=== PATIENT | female | born 1985 | race Caucasian/White ===

== ENCOUNTER 2017-08-01 22:01 | Inpatient (IN) | payer SELFPAY ==
[2017-08-01] MEDS ORDERED: Acetaminophen 500 MG TAB ONE (22:53)
[2017-08-01] MEDS ORDERED: HYDROmorphone 0.5 MG/0.5 ML SYRINGE ONE (22:58)
[2017-08-01 23:35] LABS: Anion Gap 10 mmol/L (10-20); BUN (Urea Nitrogen) 17 mg/dL (7.0-18.7); Calc. Creatinine Clearance 0 mL/min (70-130); Calcium 8.8 mg/dL (7.8-10.44); Carbon Dioxide 24 mmol/L (22-29); Chloride 102 mmol/L (98-107); Estimated GFR-MDRD Greater than 90
[2017-08-01 23:37] LABS: Band 8 % (5-11); Hematocrit 31.3 % (36.0-47.0); Mean Platelet Volume 6.6 fL (7.4-10.4); Neutrophil 87 % (42-75); Red Blood Cell (RBC) Count 3.36 mill/uL (4.20-5.40)
[2017-08-02] MEDS ORDERED: Iothalamate Meglumine 60% 50 ML VIAL FS ONE
[2017-08-02] MEDS ORDERED: Morphine 4 MG/ML VIAL ONE ×2 (00:09→01:55)
[2017-08-02] MEDS ORDERED: Fentanyl 100 MCG/2 ML VIAL ONE (00:47)
[2017-08-02] MEDS ORDERED: Midazolam HCl 2 mg/2 ml Vial ONE (00:47)
[2017-08-02] MEDS ORDERED: Ondansetron HCl/PF 4 MG/2 ML Vial IVP PRN ×2 (01:47→01:52)
[2017-08-02] MEDS ORDERED: Promethazine HCl 25 MG/ML VIAL SLOW IVP PRN (01:47)
[2017-08-02] MEDS ORDERED: Promethazine HCl 25 MG/ML VIAL IM PRN (01:47)
[2017-08-02] MEDS ORDERED: Docusate 100 MG CAP PO PRN (01:52)
[2017-08-02] MEDS ORDERED: Acetaminophen 500 MG TAB PO PRN (01:52)
[2017-08-02] MEDS ORDERED: Oxybutynin 5 MG TAB PO PRN (01:52)
[2017-08-02] MEDS ORDERED: diphenhydrAMINE 50 MG/ML VIAL IVP PRN (01:52)
[2017-08-02] MEDS ORDERED: Metoclopramide HCl 10 MG/2 ML VIAL IVP PRN (01:53)
[2017-08-02] MEDS ORDERED: traMADol HCl 50 MG TAB PO PRN (01:54)
[2017-08-02] MEDS ORDERED: Lactated Ringer's 1,000 ML IV SCH (02:00)
[2017-08-02 02:45] VITALS: BMI 19.5
[2017-08-02] MEDS: Morphine 4 MG/ML VIAL IV PRN ×2 (03:57→08:41)
--- NOTE | 2017-08-02 05:25 | OP ---
DATE OF PROCEDURE: 08/02/2017 PREOPERATIVE DIAGNOSES: 2-3mm distal left ureteral stone with hydronephrosis and urinary tract infection. POSTOPERATIVE DIAGNOSES: Presumed small distal left ureteral stone with severe hydroureteronephrosis and urinary tract infection. SURGEON: Barbara Morton M.D. ANESTHESIA: General ET tube. COMPLICATIONS: None. FINDINGS: Significantly dilated and multiple loops within the left ureter from distention and dilation noted. SPECIMEN: Urine from the left collecting unit. COMPLICATIONS: None. DRAINS: Drain remaining was a 30 cm x 6-Malian double-J. ESTIMATED BLOOD LOSS: No blood loss. INDICATIONS: The patient is a 32-year-old female who was admitted after being seen in [place] and noted to have concern for distal obstruction from a stone with a UTI. She had actually presented 2 days prior. She did not have any imaging and was sent out on Cipro, but then ultimately was transferred after returning to the ER with worsening pain, fever, and vomiting. A CT was done this time, and showed a distal stone difficult to measure, although the report was up to 3 mm. She definitely had bilateral renal stones as well so was taken for an urgent stent. TECHNIQUE: The patient was brought into the room by Anesthesia and kept in supine position. After general anesthetic, her legs placed in lithotomy position and her perineum was prepped and draped in sterile fashion. Using a 22 -Malian cystoscope and a 30 degree lens, it was traversed the bladder inspected. No lesions were noted. Pyridium stained urine was noted and drained. The left ureteral orifice was intubated with the aid of a wire and then retrograde pyelogram was performed. Initially, the contrast would not go beyond the mid to distal ureter and this was due to significant tortuosity as there was an actual loop in the ureter in this level. With manipulation and wire I was able to bypass this area, but the stent itself stayed in a loop until it reached the proximal ureter, at which point it was extended all the way and it was clearly not into the renal pelvis as there was yet another loop noted. With the Pollack catheter all the way into the hub, I removed the wire in hopes that it would straighten out the Pollack catheter and indeed it did so. Then the wire was replaced and the Pollack catheter advanced again and now was able to go farther, but there was another loop preventing the end of the Pollack catheter from reaching the pelvis--it was only to the proximal ureter. The wire was into the renal pelvis itself. Hydronephrosis was noted. Hydronephrotic drip was not noted, and only about 2 mL of Pyridium stained urine was retrieved so this was diluted and sent for specimen. Then a 6 x 30 double-J stent was chosen, good coil visualized in what probably was the proximal ureter that was still looping over the renal pelvis via fluroscopy, and a good coil visualized in the bladder via cystoscopy. It had been fed onto the wire backwards, so ultimately it was placed backwards, but still with a good coil in both the proximal ureter with effuse noted. The scope was broken apart. Bladder drained and then removed in its entirety. The patient was then awakened and transferred to the PACU in stable condition. JASON
[2017-08-02] MEDS ORDERED: Heparin 5,000 UNITS/ML VIAL SC SCH (06:00)
--- NOTE | 2017-08-02 08:00 | RAD ---
LEFT RETROGRADE UROGRAM: DATE: 08/02/17. HISTORY: Left ureteral stent placement. COMPARISON: CT abdomen and pelvis 08/01/17. FINDINGS/IMPRESSION: Initial image demonstrates a catheter at the junction of the mid and distal left ureter. There is pr ominent dilatation and tortuosity of the left ureter with evidence of moderate left hydronephrosis. The final image demonstrates a left ureteral stent in place. The distal portion of the ureteral sten t is not seen. The proximal portion is within the renal pelvis. Correlation with intraoperative fin dings is recommended. POS: NIR
[2017-08-02 08:03] VITALS: BP 96/68; TEMP 97.5
[2017-08-02] MEDS ORDERED: Tamsulosin HCl 0.4 MG CAP PO SCH (09:00)
[2017-08-02] MEDS ORDERED: Famotidine/PF 20 mg/2ml Vial SLOW IVP SCH (09:00)
--- NOTE | 2017-08-02 11:41 | DPRG ---
DATE OF SERVICE: 08/02/2017 SUBJECTIVE: The patient did well overnight. She has significant pain with urination consistent with stent pain. She otherwise has eaten her breakfast and kept that down and has been tolerating liquid s. She is drinking Propel currently and I encouraged her to avoid flavored sykes with significant a dditives and electrolytes including salt and calcium. OBJECTIVE: VITAL SIGNS: Her vitals have remained stable. Her heart rate 60, blood pressure is normally in the systolic of 90s and she has been saturating fine. She voided at least 400 overnight. Some of that w as not recorded or tracked. GENERAL: She appears well and was ambulating without difficulty. ASSESSMENT AND PLAN: We have a 32-year-old female with concern for a small obstructing distal left s tone, status post urgent stent given the concomitant urinary tract infection. She is doing well now. She will be sent out with as needed medications in addition to her Augmentin antibiotic which she s hould take and complete a full prescription of. We reviewed this in detail and the need for definiti ve followup since she has an indwelling stent that will need to be definitively removed and cannot st ay. She understands this. Her father was there in agreement with the plan. I will see her in [facility] and anticipate getting the stent out given the small nature of the stone with decompression of th e system and dilation of the distal ureter with the stent. She should do well from that standpoint. We discussed this in detail and will discuss it more as an outpatient.
[2017-08-02] MEDS ORDERED: cefTRIAXone\\ROCEPHIN 1 GM in Syringe 10 ML SLOW IVP SCH (12:00)
== END 2017-08-02 11:06 | disposition home or self-care (01) | DRG 690 ==
LOC: ERS 22:01 → T4-A 08-02 00:51 → SDC/OP 08-02 00:56 → T4-A 08-02 02:06
PROVIDERS: ADMIT Urology; ATTEND Urology
PROC: 0T778DZ Dilation of Left Ureter with Intraluminal Device, Via Natural or Artificial Opening Endoscopic (ICD-10-PCS; principal; 2017-08-02)
DX: N13.6 Pyonephrosis (principal)
CPT/HCPCS: 36415; 74420; 84132; 87086; 96374; C1758; C1769; J0696; J1170; J1644; J2250; J2270; J3010; Q9961; S0028

== ENCOUNTER 2019-06-08 16:25 | Observation (INO) | payer OTHER ==
[~2019-06-08 16:25] MED LIST: Lidocaine 1% PF 5 ML VIAL ONE; PROPOFOL 200 MG/20 ML VIAL ONE; Succinylcholine Chloride 20 MG/ML 10 ml SYRINGE FS ONE
[2019-06-08] MEDS ORDERED: Morphine 4 MG/ML VIAL ONE (17:01)
[2019-06-08] MEDS ORDERED: Ondansetron PF 4 MG/2 ML Vial ONE (17:01)
[2019-06-08] MEDS ORDERED: Iothalamate Meglumine 60% 50 ML VIAL FS ONE (17:40)
[2019-06-08] MEDS ORDERED: B & O ONE (17:57)
[2019-06-08] MEDS ORDERED: Fentanyl 100 MCG/2 ML VIAL ONE ×2 (18:07→20:01)
[2019-06-08] MEDS ORDERED: Midazolam HCl 2 mg/2 ml Vial ONE (18:19)
--- NOTE | 2019-06-08 19:34 | RAD ---
XR IVP Retrograde History: Stent placement Comparison: CT examination same day Findings: High-grade left hydroureteronephrosis with decompression after stent placement. Impression: High-grade left hydroureteronephrosis with decompression after stent placement.
[2019-06-08] MEDS ORDERED: Ondansetron HCl/PF 4 MG/2 ML Vial IVP PRN (19:43)
[2019-06-08] MEDS ORDERED: Mag-Al 1200 mg/1200 mg/30 ML UDCUP PO PRN (20:47)
[2019-06-08] MEDS ORDERED: Phenazopyridine HCl 97.5 MG TABLET PO PRN (20:47)
[2019-06-08] MEDS ORDERED: Acetaminophen 500 MG TAB PO PRN (20:47)
[2019-06-08] MEDS ORDERED: diphenhydrAMINE 25 MG CAP PO PRN (20:47)
[2019-06-08] MEDS ORDERED: Oxybutynin 5 MG TAB PO PRN (20:47)
[2019-06-08] MEDS ORDERED: Morphine 2 MG/ML SYRINGE SLOW IVP PRN (20:47)
[2019-06-08] MEDS ORDERED: hydrALAZINE 20 MG/ML VIAL SLOW IVP PRN (20:47)
[2019-06-08] MEDS ORDERED: Sodium Chloride 0.9% 1,000 ML IV SCH (20:50)
[2019-06-08] MEDS ORDERED: Ondansetron PF 4 MG/2 ML Vial IVP PRN (20:50)
[2019-06-08] MEDS ORDERED: Ondansetron ODT 4 MG TAB SL PRN (20:50)
[2019-06-08 21:00] VITALS: BMI 23.6
[2019-06-08] MEDS: Morphine 4 MG/ML VIAL SLOW IVP PRN (21:29)
[2019-06-08] MEDS: Docusate 100 MG CAP PO SCH (21:59)
[2019-06-08] MEDS: HYDROcodone/Acetaminophen 5/325 mg Tablet PO PRN (22:10)
--- NOTE | 2019-06-09 01:18 | HP ---
ADMITTING DIAGNOSIS: Left ureteral stone with intractable pain. HISTORY OF PRESENT ILLNESS: Ms. William is a 33-year-old white female with a history of nephrolithiasis who presented with approximately 3-4 day history of severe left flank pain. She has attempted to pass the stone on her own and take [id number] medications, but it is not helping. She has tried ibuprofen and NSAIDs. She reports vomiting, but not having any fevers. She came to the emergency room today where she underwent a CT scan demonstrating a 5 mm left ureterovesical junction stone. On my discussion with the patient, she states that her pain is poorly controlled, she is having significant amount of discomfort, she has a history of stones in the past and has had the ureteroscopy and stents previously with Dr. Morton who is per her previous urologist and a urologist before that in [place] who she no longer sees. She otherwise states that she does not have problems with urinary tract infections, voiding dysfunctions, incontinence, gross hematuria outside of stones, urinary manipulations, or any other significant urologic complaints. ALLERGIES: 1. PHENERGAN. 2. CODEINE, WHICH ONLY CAUSES ITCHING. HOME MEDICATIONS: None. PAST MEDICAL HISTORY: Significant for: 1. Cervical cancer. 2. Endometriosis. 3. Nephrolithiasis. PAST SURGICAL HISTORY: 1. D and C. 2. Exploratory laparoscopy for endometriosis. 3. C-sections x2. 4. Radical hysterectomy with bilateral salpingo-oophorectomy. 5. Hematoma drainage. 6. Ureteral stent placements. 7. Ureteroscopies. FAMILY HISTORY: Significant for stone disease in her daughter. SOCIAL HISTORY: The patient drinks alcohol socially. Denies illicit drug use. Denies smoking. REVIEW OF SYSTEMS: A 12-point review of system was reviewed and negative other than what was commented on the HPI. PHYSICAL EXAMINATION: VITAL SIGNS: Temperature 97.9, pulse 98, respirations 18, blood pressure 149/65, saturation 96% on room air. GENERAL: Appears significantly uncomfortable and in pain. Otherwise, appears stated age, well nourished, well developed, conversant. HEENT: Normocephalic, atraumatic. Pupils are symmetric and round. Moist mucous membrane. The patient has dentures. Trachea midline. CARDIOVASCULAR: Regular rate and rhythm. Normal S1 and S2. Symmetric pulses. CHEST: No increased work of breathing. Symmetric expansion of the lungs, clear anteriorly. ABDOMEN: Soft, tenderness to palpation on the left with left CVA tenderness. No suprapubic tenderness. No organomegaly. Well-healed midline incisions without hernia. GENITOURINARY: Deferred at this time. EXTREMITIES: No clubbing, cyanosis, or edema. MUSCULOSKELETAL: No joint deformities or joint erythema noted. Full range of motion. NEUROLOGICAL: Cranial nerves 2 through 12 grossly intact. No focal or sensory motor deficits identified. LYMPHATICS: No enlarged lymph nodes in the cervical, supraclavicular, axillary, or inguinal regions. SKIN: Warm and dry. No rashes or lesions. Good turgor. PSYCHIATRIC: Alert and oriented x3. Appropriate mood and affect for situation. LABORATORY EVALUATION: The full set of labs are in the [employer] system, which I reviewed. White count is 6.2. Creatinine is 0.78. Urinalysis demonstrates 4 to 6 squamous cells, 4 to 6 red blood cells, rare bacteria, 0 to [address] stone protocol demonstrates a 5 mm left ureterovesical junction stone with moderate to severe hydroureteronephrosis and additional small calculi in the lower pole of the right kidney. ASSESSMENT AND PLAN: A 33-year-old white female with left ureterovesical junction stone with intractable pain and hydronephrosis. Given the several days of relapse with inadequate pain relief and her current situation with inadequate pain control, I have discussed ureteral stenting with her. She is familiar with the procedure. I went over the procedure again with her including risks and benefits, the risks which include, but not limited to, bleeding, worsening infection, ureteral damage or injury, ureteral perforation, bladder injury, renal injury, inability to pass the stent, and need for further procedures. She understands these risks and wishes to proceed forward. I told her she could stay 23-hour observation for pain control in the hospital and once she is adequately feeling better with better pain control, she can be discharged and we will plan definitive ureteroscopy as an outpatient. We will continue the Rocephin here for perioperative coverage while in the hospital, but this will probably not need to be continued as there is no strong evidence for urinary tract infection. Final procedure can be determined after urine culture is finalized. Job ID: [id number]
--- NOTE | 2019-06-09 01:23 | OP ---
DATE OF PROCEDURE: 06/08/2019 PREOPERATIVE DIAGNOSIS: Left ureteral stone. POSTOPERATIVE DIAGNOSIS: Left ureteral stone. PROCEDURE PERFORMED: Cystoscopy with left retrograde pyelogram, and left ureteral stent placement, 6 x 26 double-J stent. INDICATION FOR PROCEDURE: Ms. William is a 33-year-old white female with a 5 mm left ureterovesical junction stone. She had intractable pain and failed IV pain medications in the OR. She has elected to go for ureteral stent placement with all risks and benefits discussed, which she has agreed to proceed. DESCRIPTION OF PROCEDURE: After identification of armband and verification of consent, the patient was brought back to the operating room, where she underwent general anesthesia with endotracheal intubation. She was then placed in dorsal lithotomy position, prepped and draped in usual sterile fashion. After appropriate time-out, a lubricated 22-Kinyarwanda rigid cystoscope was introduced per urethra into the bladder. The bladder was diffusely normal and unremarkable without any significant mucosal abnormalities. There was some mild erythema around the left ureter. A 0.035 Sensor wire was attempted to be cannulated into the left ureter, but there was significant coiling in the distal ureter likely from inability to pass the stone. The wire was removed and a 5-Kinyarwanda Weimar catheter was advanced into the ureter and a retrograde pyelogram performed which demonstrated a filling defect in the distal ureter with significant hydroureteronephrosis. Due to some tortuosity of the ureter, the Sensor wire was switched out for a 0.038 angled Glidewire which was able to be passed with ease up into the kidney. A 6 x 26 double-J stent was advanced over the Sensor wire up to the level of the kidney and the wire removed leaving a good curl in the kidney and a partial curl in the bladder. The bladder was then emptied and the cystoscope removed. A B and O suppository was placed in the patient's rectum. Of note, the patient did have dark somewhat tarry stools, which is unclear if this is evidence for just the patient's diet or if there was any kind of concern for GI bleeding. We will further follow up on this afterwards. The patient was then taken out of positioning, awakened, taken to PACU for recovery in stable condition. COMPLICATIONS: None. ESTIMATED BLOOD LOSS: Minimal. RETAINED TUBES AND DRAINS: 6 x 26 double-J stent on the left. SPECIMENS: None. DISPOSITION: The patient will be kept in the hospital for monitoring and for pain control. She can be discharged tomorrow if her pain control is adequate and we will follow up for definitive ureteroscopy in the future. Job ID: [id number]
[2019-06-09] MEDS: Morphine 4 MG/ML VIAL SLOW IVP PRN ×2 (01:38→06:12)
[2019-06-09] MEDS: HYDROcodone/Acetaminophen 5/325 mg Tablet PO PRN ×2 (03:19→08:56)
[2019-06-09] MEDS: Docusate 100 MG CAP PO SCH (08:49)
[2019-06-09] MEDS ORDERED: Ondansetron PF 4 MG/2 ML Vial IVP PRN (08:58)
[2019-06-09] MEDS ORDERED: HYDROcodone/Acetaminophen 5/325 mg Tablet PO PRN ×2 (08:59)
[2019-06-09 11:42] VITALS: BP 110/75; TEMP 98
--- NOTE | 2019-06-09 13:35 | PRG ---
DATE OF SERVICE: 06/09/2019 SUBJECTIVE: The patient was having a significant amount of nausea and vomiting this morning. She states that the nausea and vomiting occur whenever she gets severe pain. We increased her pain medications up to 1 to 2 tablets for the [place] and discontinued the morphine to see if she would be able to keep her pain under control with tablets alone. She did much better for the rest of the morning with no further vomiting. She states she is eager to go home. Her pain is adequately controlled. She otherwise has felt good. OBJECTIVE: VITAL SIGNS: Temperature 98, pulse 91, respirations 20, blood pressure 110/75, and saturation 99% on room air. GENERAL: No apparent distress. Communicative and alert. CARDIOVASCULAR: Regular rate and rhythm. ABDOMEN: Soft, nontender, and nondistended. Positive bowel sounds. : Not examined. EXTREMITIES: No clubbing, cyanosis, or edema. LABORATORY EVALUATION: There are no new labs today for today's admission. ASSESSMENT AND PLAN: A 33-year-old white female with left ureteral stone with left ureteral colic, status post left ureteral stent placement. Doing well with significant reduction in pain. She is having some stent related issues, but this seems to be controlled with hydrocodone 1 to 2 tablets. I will go ahead and discharge her home and we will make plans for ureteroscopy on . I went over the ureteroscopic surgery with her including the operative details as well as postoperative course and recovery. Risks and benefits were discussed. Risks, which include, but are not limited to bleeding, infection, damage to the ureter, damage to the kidneys, ureteral stricture formation, ureteral perforation, need for additional procedures, prolonged stenting, and incomplete stone removal. She understands these risks and states she is willing to proceed forward. We will plan for doing the surgery on , but she can be discharged home today and I will see her back on that date for removal of the stone. Job ID: [id number]
--- NOTE | 2019-06-10 04:22 | DIS ---
DATE OF ADMISSION: 06/08/2019 DATE OF DISCHARGE: 06/09/2019 ADMITTING PHYSICIAN: Tushar Squires MD. DISCHARGING PHYSICIAN: Tushar Squires MD. ADMITTING DIAGNOSIS: Left ureteral stone. DISCHARGE DIAGNOSIS: Left ureteral stone. PROCEDURE PERFORMED: Cystoscopy with left ureteral stent placement and left retrograde pyelogram. BRIEF HISTORY: Mrs. William is a 33-year-old white female with a history of nephrolithiasis. She had severe intractable pain secondary to a 5 mm distal left ureteral stone. Due to improper pain control, she was brought into the hospital for admission and ureteral stenting. The full H and P can be found dictated in the [employer]. HOSPITAL COURSE: After patient was admitted, she went straight to the operating room, where she underwent her stent (please see operative note for details). Postoperatively, she was put back in recovery and then went to her floor bed. She did have some issues of nausea and vomiting on postop day #1, but after changing her pain medication to tablets along without morphine and increasing to two tablets at a time, she had better pain control without any further nausea, vomiting. At this point, she is felt stable for discharge and was discharged home with intentions to return on for ureteroscopy and removal of the stone. DISPOSITION: Discharge to home. DISCHARGE CONDITION: Good. DISCHARGE MEDICATIONS: Include resuming her sertraline. She will also be given [place] 5/325 one to two tabs p.o. q.6 hours p.r.n. pain, Zofran 4 mg sublingual q.6 hours p.r.n. nausea, and oxybutynin 5 mg p.o. t.i.d. p.r.n. urgency/frequency. DISCHARGE INSTRUCTIONS: Include light activity, no heavy lifting or strenuous activities to avoid stent-related pain. She is to notify us if she develops persistent vomiting, uncontrolled pain, fevers, or any other concerning signs or symptoms. I did caution her that she is not to disappear or fail to follow up with ureteral stent in place as this could have dire consequences including ureteral damage, kidney damage, kidney loss, severe infections, and large stone formation. She states that she will keep her appointments and understands the risks of failure to follow up with an indwelling stent. I will plan to see her on Thursday for ureteroscopy. Job ID: [id number]
== END 2019-06-09 14:42 | disposition home or self-care (01) ==
LOC: ERS 16:25 → SURG B 17:55 → ERS 17:55 → SDC/OP 18:00 → SURG B 20:03 → SDC/OP 21:24
PROVIDERS: ADMIT Urology; ATTEND Urology
PROC: 0T778DZ Dilation of Left Ureter with Intraluminal Device, Via Natural or Artificial Opening Endoscopic (ICD-10-PCS; principal; 2019-06-09)
DX: N13.1 Hydronephrosis with ureteral stricture, not elsewhere classified (principal); F41.8 Other specified anxiety disorders; F32.9 Major depressive disorder, single episode, unspecified; Z79.899 Other long term (current) drug therapy; Z88.5 Allergy status to narcotic agent; Z88.8 Allergy status to other drugs, medicaments and biological substances
CPT/HCPCS: 74420; 96374; 96375; 96376; C1758; C1769; G0378; J2001; J2250; J2270; J2405; J2704; J3010

== ENCOUNTER 2019-06-11 10:14 | Day surgery (SDC) | payer OTHER ==
[2019-06-11] MEDS ORDERED: Levofloxacin 500 mg/D5W 100 ml Premix Bag ONE (10:47)
[2019-06-11] MEDS ORDERED: Midazolam HCl 2 mg/2 ml Vial ONE (11:33)
[2019-06-11] MEDS ORDERED: Iothalamate Meglumine 60% 50 ML VIAL FS ONE (13:03)
[2019-06-11] MEDS ORDERED: Fentanyl 100 MCG/2 ML VIAL ONE ×2 (13:06→14:17)
[2019-06-11] MEDS ORDERED: HYDROcodone/Acetaminophen 5/325 mg Tablet ONE (15:10)
--- NOTE | 2019-06-11 20:01 | OP ---
DATE OF PROCEDURE: 06/11/2019 SERVICE: Urology. PREOPERATIVE DIAGNOSIS: Left ureteral stone. POSTOPERATIVE DIAGNOSIS: Left renal stone. PROCEDURES PERFORMED: Cystoscopy with ureteroscopy and basket extraction of stone, and removal of the 6 x 26 double-J stent. INDICATION FOR PROCEDURE: Ms. William is a 33-year-old white female, who initially had come in with severe flank pain with demonstration of approximately 4 to 5 mm distal left ureteral calculus with hydronephrosis. She is having uncontrolled pain, so she went urgent stenting at that time. She was kept in the hospital overnight and was discharged on Saturday with instructions to come back today for ureteroscopy and removal of the stone. Risks and benefits have been discussed, and she has agreed and agreed to proceed forward. DESCRIPTION OF PROCEDURE: After identification of armband and verification of consent, the patient was brought back to the operating room, where she underwent general anesthesia with an LMA. She was then placed in dorsal lithotomy position, prepped and draped in usual sterile fashion. After appropriate time-out, a lubricated 22-Cameroonian rigid cystoscope was introduced per urethra into the bladder and attention turned toward the left ureteral orifice from which there was a stent emanating. Flexible grasper was used to grasp the stent and bring up to the level of the urethral meatus. A 0.035 Sensor wire was then advanced through the ureteral stent up into the renal pelvis. The stent was then removed and discarded. A semi-rigid ureteroscope was then brought in alongside the Sensor wire into the bladder and into the left ureter. Ureteroscopy was performed up to the mid ureter, and no stone was encountered. The area where the stone was, was seen with indentation of the stone in that location with a significant amount of inflammation. It is possible the stone did come out while we were removing the stent or it is possible that she just recently passed a stone. In either case, there was evidence of small punctate stones up in the kidney approximately around 1 to 2 mm range. I elected to go ahead and take these out since she was already here to avoid any further problems with stone passage. A flexible ureteroscope was then used to pass up into the left kidney up into the renal pelvis. A 1.9-Cameroonian Nitinol basket was used to find one small stone that measured to somewhere in the 1 to 2 mm range and grasp it and bring it out for stone extraction. The stone did crumble a little bit and ultimately it was too small to sent for specimen; therefore, we did not send the stone for stone analysis. The remainder of the pyeloscopy did not demonstrate any other stones. Satisfied that the left side is completely cleared. The ureteroscope was withdrawn and removed. Since there was no dilation necessary or significant trauma to the ureter, I did not feel that another ureteral stent was necessary, so the Sensor wire was removed. The patient was then awakened and taken to PACU for recovery in stable condition. COMPLICATIONS: None. ESTIMATED BLOOD LOSS: Minimal. RETAINED TUBES AND DRAINS: None. SPECIMENS: None. DISPOSITION: The patient will be discharged home and follow up with me in approximately 2 to 3 weeks for postop check. Job ID: [id number]
== END 2019-06-11 15:37 | disposition home or self-care (01) ==
LOC: SDC 10:14
PROVIDERS: ATTEND Urology
PROC: 0TC78ZZ Extirpation of Matter from Left Ureter, Via Natural or Artificial Opening Endoscopic (ICD-10-PCS; principal; 2019-06-11)
DX: N13.2 Hydronephrosis with renal and ureteral calculous obstruction (principal); Z79.899 Other long term (current) drug therapy; Z88.5 Allergy status to narcotic agent; Z88.8 Allergy status to other drugs, medicaments and biological substances
CPT/HCPCS: C1758; C1769; J1956; J2250; J3010